=== PATIENT | female | born 1970 | race Caucasian/White ===

== ENCOUNTER 2017-01-17 01:24 | Emergency (ER) | payer SELFPAY ==
[~2017-01-17] VITALS: Ht 167.6 cm; Wt 70.0 kg
[~2017-01-17 01:24] MED LIST: CIPR-9 PO; TRAM50TA PO
[2017-01-17 01:30] VITALS: BP 109/49; PULSE 86; RESP 16; TEMP 98.5; O2SAT 99
== END 2017-01-17 02:25 | disposition left against medical advice (07) ==
LOC: PHED 01:24
DX: Z76.89 Persons encountering health services in other specified circumstances (principal)
CPT/HCPCS: 99281